=== PATIENT | male | born 1955 | race Caucasian/White ===

== ENCOUNTER → 2017-01-05 | Outpatient (CLI) | payer BC ==
--- NOTE | 2017-01-05 16:52 | CT ---
EXAMINATION: CT chest without contrast HISTORY: Pulmonary nodules COMPARISON: 07/05/2016 TECHNIQUE: Axial CT images obtained through the chest without contrast. Coronal and sagittal reconst ructions obtained. FINDINGS: The lungs are clear without focal consolidation. No pleural effusion or pneumothorax. Ther e is moderate pulmonary emphysema. Again noted are multiple 3 to 5 mm pulmonary nodules noted bilate rally. Overall these appear unchanged to smaller in size. The heart is normal in size without a tonie cardial effusion. No mediastinal or pulmonary lymphadenopathy. The thoracic aorta is normal caliber. Central airways are clear. There is a small hiatal hernia. There are residual cysts within the liver measuring up to 5.7 cm, likely sequela from the previous l aceration. Otherwise the visualized images of the upper abdomen appear normal. Healing right-sided rib fractures are noted. IMPRESSION: 1. Stable bilateral pulmonary nodules measuring up to 5 mm. Follow-up in one year to 18 months accor ding to the Fleischner criteria. 2. Cystic sequela within the liver from a previous laceration. 3. Pulmonary emphysema. 4. Healing right rib fractures.
== END ==
LOC: MW.DI 11:18
PROVIDERS: ATTEND Emergency Medicine
DX: R91.1 Solitary pulmonary nodule (principal); S36.113S Laceration of liver, unspecified degree, sequela; J43.9 Emphysema, unspecified; S22.31XD Fracture of one rib, right side, subsequent encounter for fracture with routine healing
CPT/HCPCS: 71250; 71250-26

== ENCOUNTER 2020-09-30 09:12 | Day surgery (SDC) | payer BC ==
[~2020-09-30 09:12] MED LIST: Lactated Ringers 1,000 ML IV SCH; Midazolam 1 MG/ML 2 ML SDV ONE; Propofol 200 MG/20 ML SDV ONE; Sodium Chloride 0.9% 10 ML SDV IV PRN; Sodium Chloride 0.9% 10 ML Syringe FLUSH PRN; Sodium Chloride 0.9% 2.5 ML Syringe FLUSH PRN
--- NOTE | 2020-09-30 09:52 | PCM.PREANE ---
Preanesthetic Assessment - Anesthesia/Transfusion/Family Hx Anesthesia History: Prior Anesthesia Without Reaction Family History of Anesthesia Reaction: No Transfusion History: No Prior Transfusion(s) Intubation History: Unknown - Review of Systems General: No Symptoms Pulmonary: No Symptoms Cardiovascular: No Symptoms Gastrointestinal: Other (h/o colon polyps) Neurological: No Symptoms Other: Reports: None - Physical Assessment Vital Signs: Last Vital Signs Temp 36.5 C 09/30/20 09:31 Pulse 75 09/30/20 09:31 Resp 16 09/30/20 09:31 BP 119/74 09/30/20 09:31 Pulse Ox 96 09/30/20 09:31 Height: 5 ft 3 in Weight: 68.946 kg ASA Class: 3 Mental Status: Alert & Oriented x3 Airway Class: Mallampati = 2 Dentition: Reports: Normal Dentition Thyro-Mental Finger Breadths: 3 Mouth Opening Finger Breadths: 3 ROM/Head Extension: Limited/Partial Lungs: Clear to Auscultation, Normal Respiratory Effort, Decreased Breath Sounds Cardiovascular: Regular Rate, Regular Rhythm - Allergies Allergies/Adverse Reactions: Allergies Allergy/AdvReac Type Severity Reaction Status Date / Time No Known Allergies Allergy Verified 09/30/20 09:37 - Blood Blood Available: No - Anesthesia Plan Pre-Op Medication Ordered: None - Acknowledgements Anesthesia Type Planned: MAC Pt an Appropriate Candidate for the Planned Anesthesia: Yes Alternatives and Risks of Anesthesia Discussed w Pt/Guardian: Yes Pt/Guardian Understands and Agrees with Anesthesia Plan: Yes PreAnesthesia Questionnaire HEENT History: Reports: None Cardiovascular History: Reports: Other (See Below) (mild hypercholesteronemia) Respiratory History: Reports: COPD (severe COPD responsive to bronchodilators), SOB (walking uphill) Other Respiratory History: pulmonary nodule Gastrointestinal History: Reports: Colon Polyp, Diverticulosis Other Gastrointestinal History: liver laceration due to fall from 11 feet Genitourinary History: Reports: BPH Musculoskeletal History: Reports: Fracture, RA Other Musculoskeletal History: hx fx of rib-rt side & superior pubic ramus due to fall from 11 feet Neurological History: Reports: Concussion Psychiatric History: Reports: None Endocrine/Metabolic History: Reports: Hyperthyroidism, Hypothyroidism Other Endocrine/Metabolic History: increased uric acid Hematologic History: Reports: None Immunologic History: Reports: None Oncologic (Cancer) History: Reports: None Dermatologic History: Reports: None - Past Surgical History Head Surgeries/Procedures: Reports: None HEENT Surgical History: Reports: None Cardiovascular Surgical History: Reports: None Respiratory Surgical History: Reports: None GI Surgical History: Reports: Colonoscopy (2013) Male Surgical History: Reports: Vasectomy Endocrine Surgical History: Reports: None Neurological Surgical History: Reports: None Oncologic Surgical History: Reports: None Dermatological Surgical History: Reports: None - SUBSTANCE USE Tobacco Use Status *Q: Former Tobacco User (quit 2014) Tobacco Use Within Last Twelve Months: No - HOME MEDS Home Medications: Home Meds Levothyroxine 75 mcg PO ACBREAKFAST 07/05/16 [History] Albuterol [Ventolin HFA] 2 puff INH Q4H PRN 09/24/20 [History] Fluticasone/Umeclidin/Vilanter [Trelegy Ellipta 100-62.5-25 MCG] 1 puff INH DAILY 09/24/20 [History] Folic Acid 1 mg PO ASDIRECTED 09/24/20 [History] metHOTREXate sodium [Methotrexate] 6 tab PO WEEKLY 09/24/20 [History] predniSONE 10 mg PO ASDIRECTED 09/24/20 [History] - CURRENT (IN HOUSE) MEDS Current Meds: Current Medications Lactated Ringer's (Ringers, Lactated) 1,000 mls @ 125 mls/hr IV ASDIRECTED [facility] Last Admin: 09/30/20 09:37 Dose: 125 mls/hr Documented by: Sodium Chloride (Saline Flush) 2.5 ml FLUSH ASDIRECTED PRN PRN Reason: Keep Vein Open Sodium Chloride (Normal Saline) 10 ml IV ASDIRECTED PRN PRN Reason: IV Use Discontinued Medications Midazolam HCl (Versed 1 Mg/Ml) Confirm Administered Dose 2 mg .ROUTE .STK-MED ONE Stop: 09/30/20 08:18 Propofol (Diprivan 20 Ml) Confirm Administered Dose 600 mg .ROUTE .STK-MED ONE Stop: 09/30/20 08:17
[2020-09-30] MEDS ORDERED: Propofol 200 MG/20 ML SDV ONE (11:00)
[2020-09-30 11:50] VITALS: BP 116/55; PULSE 70
--- NOTE | 2020-09-30 12:06 | PCM.POSTAN ---
POST ANESTHESIA ASSESSMENT - MENTAL STATUS Mental Status: Alert, Oriented - VITAL SIGNS Vital Signs: Last Vital Signs Temp 36.5 C 09/30/20 09:31 Pulse 70 09/30/20 11:44 Resp 14 09/30/20 11:44 BP 116/55 L 09/30/20 11:44 Pulse Ox 96 09/30/20 11:44 - RESPIRATORY Respiratory Status: Respiratory Rate WNL, Airway Patent, O2 Saturation Stable - CARDIOVASCULAR CV Status: Pulse Rate WNL, Blood Pressure Stable - GASTROINTESTINAL GI Status: No Symptoms - PAIN Pain Score: 0 - POST OP HYDRATION Hydration Status: Adequate & Stable - OBSERVATIONS Free Text/Narrative:: No anesthesia problems
--- NOTE | 2020-09-30 12:07 | PCM48HPAN ---
Post Anesthesia Note - EVALUATION WITHIN 48HRS OF ANESTHETIC Vital Signs in Normal Range: Yes Patient Participated in Evaluation: Yes Respiratory Function Stable: Yes Airway Patent: Yes Cardiovascular Function Stable: Yes Hydration Status Stable: Yes Pain Control Satisfactory: Yes Nausea and Vomiting Control Satisfactory: Yes Mental Status Recovered: Yes Vital Signs: Last Vital Signs Temp 36.5 C 09/30/20 09:31 Pulse 70 09/30/20 11:44 Resp 14 09/30/20 11:44 BP 116/55 L 09/30/20 11:44 Pulse Ox 96 09/30/20 11:44 - COMMENTS/OBSERVATIONS Free Text/Narrative:: No anesthesia problems
--- NOTE | 2020-09-30 13:22 | PCM.OPNOTE ---
- General Post-Op/Procedure Note Date of Surgery/Procedure: 09/30/20 Operative Procedure(s): Diagnostic colonoscopy Findings: Cecal polyp, hepatic flexure polyp, sigmoid colon polyp, diverticulosis throughout Pre Op Diagnosis: History of polyps Post-Op Diagnosis: Cecal polyp, hepatic flexure polyp, sigmoid colon polyp, diverticulosis Anesthesia Technique: [facility] [place] Primary Surgeon: Iris Soler Condition: Stable Free Text/Narrative:: Intake & Output 09/29/20 09/30/20 09/30/20 22:59 06:59 14:59 Intake Total 1000 Balance 1000
--- NOTE | 2020-10-01 16:37 | OR ---
SURGEON: IRIS SOLER MD DATE OF PROCEDURE: 09/30/2020 PREOPERATIVE DIAGNOSES: 1. History of colon polyps. 2. History of diverticulosis. POSTOPERATIVE DIAGNOSES: 1. Diverticulosis. 2. Cecal polyp. 3. Sigmoid polyp. 4. Hepatic flexure polyp. PROCEDURE PERFORMED: Diagnostic colonoscopy with polypectomy. PRIMARY SURGEON: Iris Soler MD ANESTHESIA: MAC. INSTRUMENT USED: Olympus colonoscope. EXTENT OF EXAMINATION: To the cecum. PREPARATION: Good. LIMITATIONS: None. INDICATIONS FOR EXAMINATION: The patient is a 64-year-old male with a history of colon polyps. He is overdue for a repeat colonoscopy. The patient and I discussed the procedure, expected perioperative course, and the risks. The patient verbalized understanding and wishes to proceed. PROCEDURE IN DETAIL: The patient was brought into the endoscopy suite and placed in the left lateral decubitus position. A time-out was completed verifying the patient's name, age, date of , allergies, and procedure to be performed. Monitored anesthesia care was induced and continuous oxygen was provided via nasal cannula throughout the procedure. After adequate sedation was achieved, a digital rectal exam was performed. This exam was within normal limits. A well-lubricated colonoscope was inserted in the rectum and advanced under direct visualization to the level of the cecum. The cecum was identified by both visual and anatomic landmarks. A photograph was taken of the cecal cap as well as with the scope retroflexed within the cecum. The scope was then fully withdrawn while examining the color, texture, anatomy, and integrity of the mucosa from the cecum to the anal canal. The patient was found to have a large sessile polyp within the cecum. This was removed in piecemeal fashion using a cold biopsy forceps. At the level of the hepatic flexure, the patient had a very small polyp. This was removed using a cold biopsy forceps. In the sigmoid colon, the patient had a large sessile polyp. This was removed at first using a cold biopsy forceps. However, given its size, I instead switched to a hot snare. Using this, I was able to completely resect the larger mass. I inspected the site where I removed the polyp. There was no evidence of bleeding. This was labeled as sigmoid colon polyp. The patient did have diverticulosis throughout the sigmoid colon. The scope was then brought into the rectum and retroflexed to allow visualization of the anal canal opening. This appeared normal and a photograph was taken. The scope was straightened out and fully withdrawn. The cecum to anus time was 38 minutes. The patient tolerated the procedure well and was transferred to the PACU in stable condition. ENDOSCOPIC DIAGNOSES: 1. Diverticulosis. 2. Cecal polyp. 3. Sigmoid polyp. 4. Hepatic flexure polyp. RECOMMENDATIONS: Follow up in clinic in 2 weeks. EVELINA MARTIN /[id number]
== END 2020-09-30 12:15 | disposition home or self-care (01) ==
LOC: MW.SDS 09:12
PROVIDERS: ATTEND Surgery
DX: Z12.11 Encounter for screening for malignant neoplasm of colon (principal); D12.0 Benign neoplasm of cecum; D12.4 Benign neoplasm of descending colon; D12.3 Benign neoplasm of transverse colon; K57.30 Diverticulosis of large intestine without perforation or abscess without bleeding; J44.9 Chronic obstructive pulmonary disease, unspecified; E03.9 Hypothyroidism, unspecified; E78.00 Pure hypercholesterolemia, unspecified; M06.9 Rheumatoid arthritis, unspecified; Z79.899 Other long term (current) drug therapy; Z79.890 Hormone replacement therapy; Z87.891 Personal history of nicotine dependence
CPT/HCPCS: 45380; 88305; J2250; J2704; J7120; 00811

== ENCOUNTER 2021-11-10 11:31 | Day surgery (SDC) | payer BC ==
[~2021-11-10 11:31] MED LIST changes: +Lidocaine 1% 5 ML VIAL ONE; -Midazolam 1 MG/ML 2 ML SDV ONE; -Sodium Chloride 0.9% 10 ML SDV IV PRN; +Sodium Chloride 0.9% 20 ML SDV IV PRN; +fentaNYL 100 MCG/2 ML SDV ONE
[2021-11-10 14:04] VITALS: BP 117/63; PULSE 70
== END 2021-11-10 14:06 | disposition home or self-care (01) ==
LOC: MW.SDS 11:31
PROVIDERS: ATTEND Surgery
DX: Z12.11 Encounter for screening for malignant neoplasm of colon (principal); D12.3 Benign neoplasm of transverse colon; D12.5 Benign neoplasm of sigmoid colon; K57.30 Diverticulosis of large intestine without perforation or abscess without bleeding; J44.9 Chronic obstructive pulmonary disease, unspecified; E03.9 Hypothyroidism, unspecified; E78.00 Pure hypercholesterolemia, unspecified; M06.9 Rheumatoid arthritis, unspecified; Z79.890 Hormone replacement therapy; Z79.899 Other long term (current) drug therapy; Z98.890 Other specified postprocedural states; Z87.891 Personal history of nicotine dependence
CPT/HCPCS: 45380; J2704; J3010; J7120; 00811